=== PATIENT | male | born 1980 | race Caucasian/White ===

== ENCOUNTER → 2016-05-25 | Outpatient (CLI) | payer OTHER ==
[~2016-05-25] MED LIST: CHOL100027 PO; MULT-506 PO; OPTIRAY 320 IV PRN; PRED20TA2 PO
--- NOTE | 2016-05-25 09:02 | DIAGNOSTIC IMAGING REPORT ---
CT SOFT TISSUE NECK WITH CT DOSE: 597.66 mGy.cm CLINICAL HISTORY: Palpable mass TECHNIQUE: Helical images were acquired during intravenous administration of 119 cc of Optiray 320. COMPARISON STUDY: Ultrasound study dated 05-08 FINDINGS: The visualized portions of the lung apices are unremarkable. No thyroid masses are visualized. No salivary gland masses are visualized. There are no pathologically enlarged cervical lymph nodes. No necrotic nodes are evident. There are no fluid collections suspicious for abscess. There is no evidence of airway compromise. There is left-sided supraglottic pharyngeal asymmetry. Direct visualization could be obtained in follow-up to exclude a true lesion. There are small maxillary sinus air-fluid levels. IMPRESSION: 1. Incidentally identified left-sided supraglottic pharyngeal asymmetry. 2. No evidence of pathologic adenopathy 3. No right-sided supraclavicular mass was visualized as was clinically queried. 4. Small maxillary sinus air-fluid levels Electronically signed by: Manuel Quesada M.D. 05/25/2016 9:00 AM
== END | disposition home or self-care (01) ==
LOC: C.CTS 08:30
PROVIDERS: ATTEND Family Medicine
DX: R22.1 Localized swelling, mass and lump, neck (principal)